=== PATIENT | male | born 1950 | race Caucasian/White ===

== ENCOUNTER 2019-08-05 01:58 | Outpatient (CLI) | payer MEDICARE, BC, SELFPAY ==
[2019-08-05 18:03] LABS: Anion Gap 6.2 mmol/L (3-11); BUN 25 mg/dL (7-18); CO2 28.8 mmol/L (21.0-32.0); CREATININE 0.87 mg/dL (0.70-1.30); Calcium 8.8 mg/dL (8.5-10.1); Calculated LDL 144 mg/dL (<100); Chloride 109 mmol/L (98-107); Cholesterol 226 mg/dL (<200); Glucose 90 mg/dL (74-106); HDL Cholesterol 53 mg/dL (40-60); Potassium 4.1 mmol/L (3.5-5.1); Sodium 144 mmol/L (136-145); Triglyceride 148 mg/dL (<150)
== END 2019-08-05 02:18 ==
PROVIDERS: PCP Family Medicine; Visit Provider Family Medicine
DX: E78.5 Hyperlipidemia, unspecified (principal)
CPT/HCPCS: 36415; 80048; 80061

== ENCOUNTER 2020-11-15 03:14 | Outpatient (CLI) | payer MEDICARE, BC, SELFPAY ==
[2020-11-15 09:00] LABS: Calculated LDL 175 mg/dL (<100); Cholesterol 249 mg/dL (<200); HDL Cholesterol 60 mg/dL (40-60); Triglyceride 71 mg/dL (<150)
[2020-11-15 19:41] LABS: PSA, Screening 7.1 ng/mL (0.0-4.5)
== END 2020-11-15 03:15 | disposition home or self-care (01) ==
LOC: LBO 03:14
PROVIDERS: PCP Nurse Practitioner Family; Visit Provider Nurse Practitioner Family
DX: E78.2 Mixed hyperlipidemia (principal); Z12.5 Encounter for screening for malignant neoplasm of prostate; N40.1 Benign prostatic hyperplasia with lower urinary tract symptoms; N13.8 Other obstructive and reflux uropathy
CPT/HCPCS: 36415; 80061; 84153

== ENCOUNTER → 2020-12-21 13:03 | Outpatient (BNVA) | payer MEDICARE, BC, SELFPAY | PROVIDERS: PCP Nurse Practitioner Family; Referring Provider Nurse Practitioner Family; Visit Provider Urology | DX: N40.1 Benign prostatic hyperplasia with lower urinary tract symptoms (principal); Z80.42 Family history of malignant neoplasm of prostate; R97.20 Elevated prostate specific antigen [PSA] | CPT/HCPCS: 99204 ==

== ENCOUNTER → 2021-05-10 14:25 | Outpatient (BNVA) | payer MEDICARE, BC, SELFPAY | PROVIDERS: PCP Nurse Practitioner Family; Referring Provider Nurse Practitioner Family; Visit Provider Urology | DX: R39.15 Urgency of urination (principal); R97.20 Elevated prostate specific antigen [PSA] | CPT/HCPCS: 81003; 99214 ==

== ENCOUNTER 2021-05-10 18:09 | Outpatient (REF) | payer MEDICARE, BC, SELFPAY ==
[2021-05-14 10:45] LABS: Free PSA/PSA Ratio 0.08 ratio
== END 2021-05-10 18:10 | disposition home or self-care (01) ==
LOC: LBN 18:09
PROVIDERS: PCP Nurse Practitioner Family; Visit Provider Urology
DX: R97.20 Elevated prostate specific antigen [PSA] (principal)
CPT/HCPCS: 84154

== ENCOUNTER 2021-08-22 02:34 | Outpatient (CLI) | payer MEDICARE, BC, SELFPAY | END 2021-08-22 02:35 | disposition home or self-care (01) | LOC: LBO 02:34 | PROVIDERS: PCP Nurse Practitioner Family; Visit Provider Urology | DX: R97.20 Elevated prostate specific antigen [PSA] (principal) | CPT/HCPCS: 36415; 84154 ==

== ENCOUNTER 2021-11-08 02:08 | Outpatient (CLI) | payer MEDICARE, BC, SELFPAY ==
[2021-11-08 19:39] LABS: PSA, Diagnostic 9.2 ng/mL (<=4.5)
== END 2021-11-08 02:09 | disposition home or self-care (01) ==
LOC: LBO 02:08
PROVIDERS: PCP Nurse Practitioner Family; Visit Provider Urology
DX: R97.20 Elevated prostate specific antigen [PSA] (principal)
CPT/HCPCS: 36415; 84153

== ENCOUNTER → 2021-11-15 14:32 | Outpatient (BNVA) | payer MEDICARE, BC, SELFPAY | PROVIDERS: PCP Nurse Practitioner Family; Referring Provider Nurse Practitioner Family; Visit Provider Urology | DX: R35.1 Nocturia (principal); N40.1 Benign prostatic hyperplasia with lower urinary tract symptoms; N13.8 Other obstructive and reflux uropathy; R97.20 Elevated prostate specific antigen [PSA] | CPT/HCPCS: 99214 ==

== ENCOUNTER 2022-02-14 02:47 | Outpatient (CLI) | payer MEDICARE, BC, SELFPAY | END 2022-02-14 02:48 | disposition home or self-care (01) | LOC: LBO 02:47 | PROVIDERS: PCP Nurse Practitioner Family; Visit Provider Urology | DX: R97.20 Elevated prostate specific antigen [PSA] (principal) | CPT/HCPCS: 36415; 84154 ==

== ENCOUNTER → 2022-02-21 10:00 | Outpatient (BNVA) | payer MEDICARE, BC, SELFPAY | PROVIDERS: PCP Nurse Practitioner Family; Referring Provider Nurse Practitioner Family; Visit Provider Urology | DX: R97.20 Elevated prostate specific antigen [PSA] (principal); R39.89 Other symptoms and signs involving the genitourinary system | CPT/HCPCS: 99443 ==

== ENCOUNTER 2022-03-04 03:21 | Outpatient (CLI) | payer MEDICARE, BC, SELFPAY ==
[2022-03-04 09:18] LABS: CREATININE 0.9 mg/dL (0.70-1.30); Estimated GFR 91.88 (mL/min/1.73m2)
== END 2022-03-04 03:22 | disposition home or self-care (01) ==
LOC: LBO 03:21
PROVIDERS: PCP Nurse Practitioner Family; Visit Provider Urology
DX: N40.1 Benign prostatic hyperplasia with lower urinary tract symptoms (principal); R97.20 Elevated prostate specific antigen [PSA]; N13.8 Other obstructive and reflux uropathy
CPT/HCPCS: 36415; 82565

== ENCOUNTER → 2022-04-15 15:10 | Outpatient (BNVA) | payer MEDICARE, BC, SELFPAY | PROVIDERS: PCP Nurse Practitioner Family; Referring Provider Nurse Practitioner Family; Visit Provider Urology | DX: R39.89 Other symptoms and signs involving the genitourinary system (principal); R97.20 Elevated prostate specific antigen [PSA] | CPT/HCPCS: 99215 ==

== ENCOUNTER → 2022-05-01 13:52 | Outpatient (BNVA) | payer MEDICARE, BC, SELFPAY | PROVIDERS: PCP Nurse Practitioner Family; Referring Provider Nurse Practitioner Family; Visit Provider Urology | DX: C61 Malignant neoplasm of prostate (principal) | CPT/HCPCS: 55700; 76872; 76942 ==

== ENCOUNTER 2022-05-01 14:50 | Outpatient (REF) | payer MEDICARE, BC, SELFPAY ==
--- NOTE | 2022-05-01 14:15 | PROST_PTH ---
PATIENT: Kyree Moreno JR LOC: N U#:[id number] AGE/SX: 72/M ROOM: RE05/01/[address]: Enzo Ramos MD : 1950 BED: DIS: 05/01/2022 SPEC #: [id number] RECD: 05/01/22 15:57 STATUS: LU RE #: [id number] MORENO: 05/01/22 14:[address]: Enzo Ramos DEPT: Surgical Specimen RECD BY: Miri Burch ENTERED: 05/01/22 15:59 SP TYPE: PROST OTHR DR: Tristin Ojeda, REYES Tissues: 1 - PROSTATE NEEDLE BIOPSY 2 - PROSTATE NEEDLE BIOPSY 3 - PROSTATE NEEDLE BIOPSY 4 - PROSTATE NEEDLE BIOPSY 5 - PROSTATE NEEDLE BIOPSY 6 - PROSTATE NEEDLE BIOPSY 7 - PROSTATE NEEDLE BIOPSY 8 - PROSTATE NEEDLE BIOPSY 9 - PROSTATE NEEDLE BIOPSY 10 - PROSTATE NEEDLE BIOPSY 11 - PROSTATE NEEDLE BIOPSY 12 - PROSTATE NEEDLE BIOPSY Procedures: GROSS AND MICRO LEVEL 4 Comments: [id number]
== END 2022-05-01 14:51 | disposition home or self-care (01) ==
LOC: LBN 14:50
PROVIDERS: PCP Nurse Practitioner Family; Visit Provider Urology
DX: C61 Malignant neoplasm of prostate (principal)
CPT/HCPCS: 88305

== ENCOUNTER → 2022-05-30 14:59 | Outpatient (BNVA) | payer MEDICARE, BC, SELFPAY | PROVIDERS: PCP Nurse Practitioner Family; Referring Provider Nurse Practitioner Family; Visit Provider Urology | DX: C61 Malignant neoplasm of prostate (principal) | CPT/HCPCS: 99215 ==

== ENCOUNTER 2022-06-11 00:58 | Outpatient (CLI) | payer MEDICARE, BC, SELFPAY ==
--- NOTE | 2022-06-11 08:00 | DI.NM_ITS ---
Exam(s) NM BONE SCAN WHOLE BODY GRP EXAM: NM BONE SCAN WHOLE BODY GRP CLINICAL HISTORY: baseline study - new dx prostate cancer,c61. TECHNIQUE: Injected Dose: 25 mCi Tc-99m MDP Delayed Images: 2-3 hours. COMPARISON: CR RIGHT KNEE 3 VIEWS from 01/16/2012 CR ACROMIO CLAVICULAR JOINTS from 10/09/2014 CR LEFT SHOULDER COMPLETE from 10/09/2014 FINDINGS: Symmetric axial uptake. Bilateral renal excretion is identified. There is an area of mild increased r adiotracer uptake in the medial aspect of the right humeral head. No other suspicious areas of incre ased radiotracer uptake are seen. Degenerative changes are seen in the shoulders bilaterally. There is also mild increased activity in the right knee. Radiographic correlation is recommended. IMPRESSION: 1. Increased radiotracer uptake in the medial aspect of the right humeral head and right knee. X-ray comparison is recommended for further evaluation. This may be degenerative in nature, traumatic inj ury, or possibly metastatic disease. 2. No other abnormal radiotracer uptake is seen in the axial or appendicular skeleton. DATA REPOSITORY:
== END 2022-06-11 01:18 ==
LOC: DI 00:59
PROVIDERS: PCP Nurse Practitioner Family; Visit Provider Urology
DX: C61 Malignant neoplasm of prostate (principal); R39.89 Other symptoms and signs involving the genitourinary system
CPT/HCPCS: 78306

== ENCOUNTER → 2022-07-15 14:57 | Outpatient (BNVA) | payer MEDICARE, BC, SELFPAY | PROVIDERS: PCP Nurse Practitioner Family; Referring Provider Nurse Practitioner Family; Visit Provider Urology | DX: C61 Malignant neoplasm of prostate (principal) | CPT/HCPCS: 99215 ==

== ENCOUNTER 2022-11-28 02:03 | Outpatient (CLI) | payer MEDICARE, BC, SELFPAY ==
[2022-11-28 19:33] LABS: PSA, Diagnostic 7.4 ng/mL (<=6.5)
== END 2022-11-28 02:04 | disposition home or self-care (01) ==
PROVIDERS: PCP Nurse Practitioner Family; Visit Provider Urology
DX: C61 Malignant neoplasm of prostate (principal)
CPT/HCPCS: 36415; 84153

== ENCOUNTER → 2022-12-05 14:59 | Outpatient (BNVA) | payer MEDICARE, BC, SELFPAY | PROVIDERS: PCP Nurse Practitioner Family; Referring Provider Nurse Practitioner Family; Visit Provider Urology | DX: C61 Malignant neoplasm of prostate (principal); R97.20 Elevated prostate specific antigen [PSA] | CPT/HCPCS: 99215 ==

== ENCOUNTER → 2023-01-30 21:56 | Outpatient (CLI) | payer MEDICARE, BC, SELFPAY ==
--- NOTE | 2023-01-30 16:30 | DI.RAD_ITS ---
Exam(s) XR RIBS LT W PA LAT CHEST EXAM: XR RIBS LT W PA LAT CHEST CLINICAL HISTORY: evaluate fx R07.81 PLEURODYNIA. TECHNIQUE: 2D digital imaging was performed. COMPARISON: No exams were available for comparison FINDINGS: Six views: Left ribs-four views: There is no obvious left rib fracture. No left rib lesions. Chest x-ray: Heart size is normal mediastinum is not widened. Lungs are clear with no infiltrates no r pleural effusions. No pneumothorax. IMPRESSION: No left rib fractures. No acute pulmonary findings. DATA REPOSITORY: RADIATION DOSE DELIVERED:
--- NOTE | 2023-01-30 17:14 | DI.VRAD_ITS ---
PROCEDURE INFORMATION: Exam: XR Left Ribs Exam date and time: 01/30/2023 4:18 PM Age: 72 years old Clinical indication: Other: Evaluate FX r07.81 pleurodynia TECHNIQUE: Imaging protocol: Radiologic exam of the left ribs. Views: 2 views. COMPARISON: NM BONE SCAN WHOLE BODY [facility] 06/11/2022 12:38 PM FINDINGS: Bones/joints: Normal. Soft tissues: Normal. IMPRESSION: No acute findings. PROCEDURE INFORMATION: Exam: XR Chest Exam date and time: 01/30/2023 4:18 PM Age: 72 years old Clinical indication: Other: Evaluate FX r07.81 pleurodynia TECHNIQUE: Imaging protocol: Radiologic exam of the chest. Views: 2 views. COMPARISON: NM BONE SCAN WHOLE BODY [facility] 06/11/2022 12:38 PM FINDINGS: Lungs: Unremarkable. No consolidation. Pleural spaces: Unremarkable. No pleural effusion. No pneumothorax. Heart/Mediastinum: Unremarkable. No cardiomegaly. Bones/joints: Unremarkable. IMPRESSION: No acute findings. Dictated and Authenticated by: Marion Chandler MD. Ordering:JENNIFER Matias MD
== END ==
PROVIDERS: PCP Nurse Practitioner Family; Visit Provider Nurse Practitioner Family
DX: R07.81 Pleurodynia (principal)
CPT/HCPCS: 71046; 71100

== ENCOUNTER 2023-02-27 09:35 | Outpatient (CLI) | payer MEDICARE, BC, SELFPAY | END 2023-02-27 09:36 | disposition home or self-care (01) | LOC: LOS 09:38 | PROVIDERS: PCP Nurse Practitioner Family; Referring Provider Urology; Visit Provider Urology | DX: C61 Malignant neoplasm of prostate (principal) | CPT/HCPCS: 36415; 84153 ==

== ENCOUNTER → 2023-03-09 13:26 | Outpatient (BNVA) | payer MEDICARE, BC, SELFPAY | PROVIDERS: PCP Nurse Practitioner Family; Visit Provider Urology | DX: C61 Malignant neoplasm of prostate (principal) | CPT/HCPCS: 99214 ==

== ENCOUNTER 2023-05-12 14:20 | Outpatient (CLI) | payer MEDICARE, BC, SELFPAY ==
[2023-05-12 18:45] LABS: PSA, Diagnostic 8.6 ng/mL (<=6.5)
== END 2023-05-12 14:21 | disposition home or self-care (01) ==
LOC: LBO 05-21 14:21
PROVIDERS: PCP Nurse Practitioner Family; Visit Provider Urology
DX: C61 Malignant neoplasm of prostate (principal)
CPT/HCPCS: 36415; 84153

== ENCOUNTER → 2023-05-19 14:01 | Outpatient (BNVA) | payer MEDICARE, BC, SELFPAY | PROVIDERS: PCP Nurse Practitioner Family; Visit Provider Nurse Practitioner Gerontology | DX: C61 Malignant neoplasm of prostate (principal) | CPT/HCPCS: 99213 ==

== ENCOUNTER 2023-09-14 18:57 | Outpatient (CLI) | payer MEDICARE, BC, SELFPAY ==
[2023-09-15 18:10] LABS: PSA, Diagnostic 8.7 ng/mL (<=6.5)
== END 2023-09-14 18:58 | disposition home or self-care (01) ==
LOC: LBO 18:58
PROVIDERS: PCP Nurse Practitioner Family; Visit Provider Nurse Practitioner Gerontology
DX: C61 Malignant neoplasm of prostate (principal)
CPT/HCPCS: 36415; 84153

== ENCOUNTER → 2023-09-21 15:23 | Outpatient (BNVA) | payer MEDICARE, BC, SELFPAY | PROVIDERS: Visit Provider Urology | DX: C61 Malignant neoplasm of prostate (principal) | CPT/HCPCS: 99213 ==

== ENCOUNTER 2023-11-23 03:36 | Outpatient (CLI) | payer MEDICARE, BC, SELFPAY ==
[2023-11-23 12:47] LABS: Anion Gap 8.6 mmol/L (3-11); BUN 23 mg/dL (7-18); CO2 28.4 mmol/L (21.0-32.0); CREATININE 0.9 mg/dL (0.70-1.30); Calcium 8.8 mg/dL (8.5-10.1); Calculated LDL 164 mg/dL (<100); Chloride 108 mmol/L (98-107); Cholesterol 238 mg/dL (<200); Estimated GFR 91.31 (mL/min/1.73m2); Glucose 96 mg/dL (74-106); HDL Cholesterol 63 mg/dL (40-60); Potassium 4.2 mmol/L (3.5-5.1); Sodium 145 mmol/L (136-145); Triglyceride 56 mg/dL (<150)
[2023-11-23 18:26] LABS: PSA, Diagnostic 10.4 ng/mL (<=6.5)
== END 2023-11-23 03:37 | disposition home or self-care (01) ==
LOC: LOS 03:36
PROVIDERS: Nurse Practitioner Family; Visit Provider Urology
DX: C61 Malignant neoplasm of prostate (principal); Z13.1 Encounter for screening for diabetes mellitus; E78.2 Mixed hyperlipidemia; Z13.220 Encounter for screening for lipoid disorders; Z23 Encounter for immunization; H91.90 Unspecified hearing loss, unspecified ear
CPT/HCPCS: 36415; 80048; 80061; 84153

== ENCOUNTER → 2023-12-08 08:58 | Outpatient (BNVA) | payer MEDICARE, BC, SELFPAY | PROVIDERS: PCP Nurse Practitioner Family; Visit Provider Urology | DX: C61 Malignant neoplasm of prostate (principal) | CPT/HCPCS: 55700; 76872 ==

== ENCOUNTER 2023-12-08 09:19 | Outpatient (REF) | payer MEDICARE, BC, SELFPAY ==
--- NOTE | 2023-12-08 09:00 | PROST_PTH ---
PATIENT: Kyree Moreno JR LOC: [facility] U#:[id number] AGE/SX: 73/M ROOM: RE12/08/[address]: Enzo Ramos MD : 1950 BED: DIS: 12/08/2023 SPEC #: [id number] RECD: 12/08/23 13:01 STATUS: LU RE #: [id number] MORENO: 12/08/23 09:[address]: Enzo Ramos DEPT: Surgical Specimen RECD BY: Miri Burch ENTERED: 12/08/23 13:04 SP TYPE: PROST OTHR DR: Tristin Ojeda, REYES Tissues: 1 - PROSTATE NEEDLE BIOPSY 2 - PROSTATE NEEDLE BIOPSY 3 - PROSTATE NEEDLE BIOPSY 4 - PROSTATE NEEDLE BIOPSY 5 - PROSTATE NEEDLE BIOPSY 6 - PROSTATE NEEDLE BIOPSY 7 - PROSTATE NEEDLE BIOPSY 8 - PROSTATE NEEDLE BIOPSY 9 - PROSTATE NEEDLE BIOPSY 10 - PROSTATE NEEDLE BIOPSY 11 - PROSTATE NEEDLE BIOPSY 12 - PROSTATE NEEDLE BIOPSY Procedures: GROSS AND MICRO LEVEL 4 Comments: [id number]
== END 2023-12-08 09:20 | disposition home or self-care (01) ==
LOC: LBN 09:19
PROVIDERS: PCP Nurse Practitioner Family; Visit Provider Urology
DX: C61 Malignant neoplasm of prostate (principal)
CPT/HCPCS: 88305

== ENCOUNTER → 2023-12-17 15:00 | Outpatient (BNVA) | payer MEDICARE, BC, SELFPAY | PROVIDERS: PCP Nurse Practitioner Family; Visit Provider Urology | DX: C61 Malignant neoplasm of prostate (principal) | CPT/HCPCS: 99214 ==

== ENCOUNTER 2024-03-11 00:36 | Outpatient (CLI) | payer MEDICARE, BC, SELFPAY ==
[2024-03-11 21:47] LABS: PSA, Diagnostic 8.5 ng/mL (<=6.5)
== END 2024-03-11 00:37 | disposition home or self-care (01) ==
PROVIDERS: PCP Nurse Practitioner Family; Visit Provider Urology
DX: C61 Malignant neoplasm of prostate (principal)
CPT/HCPCS: 36415; 84153

== ENCOUNTER → 2024-03-18 10:26 | Outpatient (BNVA) | payer MEDICARE, BC, SELFPAY | PROVIDERS: PCP Nurse Practitioner Family; Referring Provider Nurse Practitioner Family; Visit Provider Urology | DX: C61 Malignant neoplasm of prostate (principal) | CPT/HCPCS: 99213 ==

== ENCOUNTER 2024-06-17 01:31 | Outpatient (CLI) | payer MEDICARE, BC, SELFPAY ==
[2024-06-20 10:25] LABS: PSA, Diagnostic 7.2 ng/mL (<=6.5)
== END 2024-06-17 01:32 | disposition home or self-care (01) ==
LOC: LBO 01:31
PROVIDERS: PCP Nurse Practitioner Family; Visit Provider Urology
DX: C61 Malignant neoplasm of prostate (principal)
CPT/HCPCS: 36415; 84153

== ENCOUNTER → 2024-06-24 09:28 | Outpatient (BNVA) | payer MEDICARE, BC, SELFPAY | PROVIDERS: PCP Nurse Practitioner Family; Referring Provider Nurse Practitioner Family; Visit Provider Urology | DX: C61 Malignant neoplasm of prostate (principal) | CPT/HCPCS: 99213 ==

== ENCOUNTER 2024-09-23 00:36 | Outpatient (CLI) | payer MEDICARE, BC, SELFPAY ==
[2024-09-23 19:08] LABS: PSA, Diagnostic 8.3 ng/mL (<=6.5)
== END 2024-09-23 00:37 | disposition home or self-care (01) ==
LOC: LBO 00:37
PROVIDERS: PCP Nurse Practitioner Family; Visit Provider Urology
DX: C61 Malignant neoplasm of prostate (principal)
CPT/HCPCS: 36415; 84153

== ENCOUNTER → 2024-10-28 13:37 | Outpatient (BNVA) | payer MEDICARE, BC, SELFPAY | PROVIDERS: PCP Nurse Practitioner Family; Visit Provider Urology | DX: C61 Malignant neoplasm of prostate (principal) | CPT/HCPCS: 99213 ==

== ENCOUNTER 2024-11-25 05:01 | Outpatient (CLI) | payer MEDICARE, BC, SELFPAY ==
--- NOTE | 2024-11-25 08:16 | DI.RAD_ITS ---
Exam(s) XR FINGER RT INDEX EXAM: XR FINGER RT INDEX CLINICAL HISTORY: ? old fracture, finger deformity,m20.009. TECHNIQUE: 2D digital imaging was performed. Three views. COMPARISON: No exams were available for comparison FINDINGS: BONES: There is an old fracture fragment seen at the dorsal plate of the distal phalanx. no acute fracture is present. No bony destructive lesion is seen. JOINTS: No dislocation present. There is flexion deformity at the distal interphalangeal joint. There are mild degenerative changes of the distal interphalangeal joint. SOFT TISSUE: Normal. IMPRESSION: Old fracture at the dorsal plate of the distal phalanx with mild flexion deformity. DATA REPOSITORY: RADIATION DOSE DELIVERED:
== END 2024-11-25 05:21 ==
LOC: DI 05:01
PROVIDERS: PCP Nurse Practitioner Family; Visit Provider Nurse Practitioner Family
DX: M20.001 Unspecified deformity of right finger(s) (principal)
CPT/HCPCS: 73140

== ENCOUNTER 2025-02-03 00:21 | Outpatient (CLI) | payer MEDICARE, BC, SELFPAY ==
[2025-02-03 17:17] LABS: PSA, Diagnostic 8.4 ng/mL (<=6.5)
== END 2025-02-03 00:22 | disposition home or self-care (01) ==
LOC: LBO 00:21
PROVIDERS: PCP Nurse Practitioner Family; Visit Provider Urology
DX: C61 Malignant neoplasm of prostate (principal)
CPT/HCPCS: 36415; 84153